=== PATIENT | female | born 1945 | race Caucasian/White ===

== ENCOUNTER 2019-06-10 00:37 | Outpatient (CLI) | payer SELFPAY ==
[~2019-06-10 00:37] MED LIST: PENI500T2 PO
[2019-06-10 09:07] LABS: CHOL/HDL RATIO 3.47 (0.00-4.99)
[2019-06-10 09:22] LABS: HEMOGLOBIN A1C 5.7 % (4.5-6.2)
== END 2019-06-10 23:59 | disposition home or self-care (01) ==
LOC: HW HEART 00:37
DX: Z13.6 Encounter for screening for cardiovascular disorders (principal)
CPT/HCPCS: 36415

== ENCOUNTER 2019-10-08 09:15 | Outpatient (CLI) | payer MEDICARE ==
[2019-10-08 10:39] LABS: BASOPHILS # (AUTO) 0.1 X10'3 (0-0.2); BASOPHILS % (AUTO) 1.3 % (0-1); EOSINOPHILS # (AUTO) 0.1 X10'3 (0-0.9); EOSINOPHILS % (AUTO) 1.8 % (0-6); HEMOGLOBIN 13.8 g/dl (12.0-16.0); LYMPHOCYTES # (AUTO) 1.7 X10'3 (1.1-4.8); LYMPHOCYTES % (AUTO) 31.7 % (21-51); MEAN CORPUSCULAR HEMOGLOBIN 31.9 PG (27.0-31.0); MEAN CORPUSCULAR HGB CONC 33.6 g/dL (33.0-36.5); MEAN CORPUSCULAR VOLUME 95.2 FL (78-98); MEAN PLATELET VOLUME 9.8 FL (7.4-10.4); MONOCYTES # (AUTO) 0.7 X10'3 (0-0.9); MONOCYTES % (AUTO) 12.8 % (2-12); NEUTROPHILS # (AUTO) 2.8 X10'3 (1.8-7.7); NEUTROPHILS % (AUTO) 52.4 % (42-75); PLATELET COUNT 201 X10'3 (140-440); RED BLOOD COUNT 4.31 X10'6 (4.20-5.60); RED CELL DISTRIBUTION WIDTH 13.4 % (11.5-14.5); WHITE BLOOD COUNT 5.3 X10'3 (4.5-11.0)
[2019-10-08 11:01] LABS: ALANINE AMINOTRANSFERASE 37 U/L (12-78); ALBUMIN 3.5 G/DL (3.4-5.0); ALKALINE PHOSPHATASE 108 IU/L (46-116); ANION GAP 2 (8-16); ASPARTATE AMINO TRANSFERASE 27 U/L (10-37); BILIRUBIN,TOTAL 0.4 MG/DL (0.1-1.0); BLOOD UREA NITROGEN 17 MG/DL (7-18); CALCIUM 9.2 MG/DL (8.5-10.1); CHLORIDE 108 MMOL/L (99-107); CREATININE 0.68 MG/DL (0.40-0.90); GLUCOSE 72 MG/DL (70-104); POTASSIUM 4.6 MMOL/L (3.5-5.1); SODIUM 143 MMOL/L (135-145); TOTAL CARBON DIOXIDE 33.3 MMOL/L (24-32); TOTAL PROTEIN 6.9 G/DL (6.4-8.2); eGFR 84 ML/MIN
[2019-10-08 11:28] LABS: OCCULT BLOOD STOOL NEGATIVE (Neg)
== END 2019-10-08 23:59 | disposition home or self-care (01) ==
LOC: LAB 09:15
PROVIDERS: ATTEND Nurse Practitioner Family
DX: J98.01 Acute bronchospasm (principal); R19.5 Other fecal abnormalities; R53.83 Other fatigue
CPT/HCPCS: 36415; 80053; 82272; 84443; 85025

== ENCOUNTER 2021-12-07 19:01 | Emergency (ER) | payer MEDICARE ==
[~2021-12-07] VITALS: Ht 160 cm; Wt 63.6 kg
[2021-12-07 19:46] LABS: BASOPHILS # (AUTO) 0.1 X10'3 (0-0.2); BASOPHILS % (AUTO) 1.2 % (0-1); EOSINOPHILS # (AUTO) 0.1 X10'3 (0-0.9); EOSINOPHILS % (AUTO) 2.1 % (0-6); HEMATOCRIT 38.2 % (35.0-45.0); HEMOGLOBIN 13.3 g/dl (12.0-16.0); LYMPHOCYTES % (AUTO) 46.8 % (21-51); MEAN CORPUSCULAR HEMOGLOBIN 32.4 PG (27.0-31.0); MEAN CORPUSCULAR HGB CONC 34.7 g/dL (33.0-36.5); MEAN CORPUSCULAR VOLUME 93.1 FL (78-98); MEAN PLATELET VOLUME 9.2 FL (7.4-10.4); MONOCYTES # (AUTO) 0.7 X10'3 (0-0.9); MONOCYTES % (AUTO) 10.9 % (2-12); NEUTROPHILS # (AUTO) 2.5 X10'3 (1.8-7.7); PLATELET COUNT 183 X10'3 (140-440); RED CELL DISTRIBUTION WIDTH 13.4 % (11.5-14.5); WHITE BLOOD COUNT 6.5 X10'3 (4.5-11.0)
[2021-12-07 20:02] LABS: ALANINE AMINOTRANSFERASE 28 U/L (12-78); ALBUMIN 3.7 G/DL (3.4-5.0); ALKALINE PHOSPHATASE 121 IU/L (46-116); ANION GAP 4 (8-16); ASPARTATE AMINO TRANSFERASE 21 U/L (10-37); BILIRUBIN,TOTAL 0.4 MG/DL (0.1-1.0); BLOOD UREA NITROGEN 25 MG/DL (7-18); BUN/CREATININE RATIO 30.9 (6.6-38.0); CALCIUM 9.6 MG/DL (8.5-10.1); CHLORIDE 103 MMOL/L (99-107); CREATININE 0.81 MG/DL (0.40-0.90); GLUCOSE 109 MG/DL (70-104); POTASSIUM 3.8 MMOL/L (3.5-5.1); SODIUM 140 MMOL/L (135-145); TOTAL CARBON DIOXIDE 32.6 MMOL/L (24-32); TOTAL PROTEIN 7.4 G/DL (6.4-8.2); eGFR 68 ML/MIN
[2021-12-07] MEDS ORDERED: aspirin 81mg tab.chew PO ONE (21:20)
[2021-12-07 22:50] VITALS: BP 156/75
== END 2021-12-07 22:15 | disposition home or self-care (01) ==
LOC: ER 19:02
DX: R07.9 Chest pain, unspecified (principal); F32.A Depression, unspecified; Z79.899 Other long term (current) drug therapy
CPT/HCPCS: 36415; 71045; 80053; 83880; 84484; 85025; 93005; 99285

== ENCOUNTER 2022-11-28 16:43 | Emergency (ER) | payer MEDICARE ==
[~2022-11-28] VITALS: Ht 160 cm; Wt 65.6 kg
[2022-11-28] MEDS ORDERED: normal saline 1000ML IV soln IVB ONE (21:10)
[2022-11-28 21:33] LABS: BASOPHILS # (AUTO) 0.1 X10'3 (0-0.2); BASOPHILS % (AUTO) 1.1 % (0-1); EOSINOPHILS # (AUTO) 0.2 X10'3 (0-0.9); EOSINOPHILS % (AUTO) 3.1 % (0-6); HEMATOCRIT 39.3 % (35.0-45.0); HEMOGLOBIN 13.1 g/dl (12.0-16.0); LYMPHOCYTES # (AUTO) 2.4 X10'3 (1.1-4.8); LYMPHOCYTES % (AUTO) 40.9 % (21-51); MEAN CORPUSCULAR HEMOGLOBIN 31.9 PG (27.0-31.0); MEAN CORPUSCULAR HGB CONC 33.5 g/dL (33.0-36.5); MEAN CORPUSCULAR VOLUME 95.4 FL (78-98); MEAN PLATELET VOLUME 9.8 FL (7.4-10.4); MONOCYTES # (AUTO) 0.7 X10'3 (0-0.9); MONOCYTES % (AUTO) 12.4 % (2-12); NEUTROPHILS # (AUTO) 2.5 X10'3 (1.8-7.7); NEUTROPHILS % (AUTO) 42.5 % (42-75); PLATELET COUNT 165 X10'3 (140-440); RED BLOOD COUNT 4.12 X10'6 (4.20-5.60); RED CELL DISTRIBUTION WIDTH 13.2 % (11.5-14.5)
[2022-11-28 21:48] LABS: ALANINE AMINOTRANSFERASE 26 U/L (12-78); ALBUMIN 3.6 G/DL (3.4-5.0); ALBUMIN/GLOBULIN RATIO 1.1 (1.1-1.5); ALKALINE PHOSPHATASE 94 IU/L (46-116); ANION GAP 8 (8-16); ASPARTATE AMINO TRANSFERASE 23 U/L (10-37); BILIRUBIN,TOTAL 0.4 MG/DL (0.1-1.0); BLOOD UREA NITROGEN 19 MG/DL (7-18); CALCIUM 9.2 MG/DL (8.5-10.1); CHLORIDE 106 MMOL/L (99-107); CREATININE 0.73 MG/DL (0.40-0.90); GLUCOSE 95 MG/DL (70-104); SODIUM 143 MMOL/L (135-145); TOTAL PROTEIN 6.9 G/DL (6.4-8.2); eGFR 77 ML/MIN
--- NOTE | 2022-11-28 22:15 | NUR ---
pt amb with steady gait to restroom for urine sample
[2022-11-28 22:39] LABS: CLARITY,URINE CLEAR (Clear); COLOR,URINE STRAW (Yellow); GLUCOSE, URINE NEGATIVE (Neg); KETONES,URINE NEGATIVE (Neg); LEUKOCYTE ESTERASE ,URINE TRACE (Neg); NITRITES, URINE NEGATIVE (Neg); OCCULT BLOOD,URINE NEGATIVE (Neg); PH,URINE 6.5 (4.8-8.0); PROTEIN,URINE NEGATIVE (Neg); UROBILINOGEN,URINE 0.2 E.U/dL (0.2-1.0)
[2022-11-28 22:41] LABS: UA COLLECTION TYPE CLN CATCH MIDSTREAM
[2022-11-28 22:45] LABS: BACTERIA,URINE NONE SEEN /HPF (Neg); MUCUS STRANDS FEW /LPF (Neg); RBC,URINE 0-2 /HPF (0-2); SQUAMOUS EPITHELIAL CELL,UR NONE SEEN /LPF (FEW); WBC,URINE 0-4 /HPF (0-4)
[2022-11-28 23:31] VITALS: BP 168/71
== END 2022-11-28 23:32 | disposition home or self-care (01) ==
LOC: ER 16:44
DX: R51.9 Headache, unspecified (principal); F32.A Depression, unspecified; Z79.899 Other long term (current) drug therapy
CPT/HCPCS: 36415; 70450; 80053; 81001; 84484; 85025; 87088; 93005; 99285; J7030; J7040

== ENCOUNTER 2023-08-20 05:48 | Day surgery (SDC) | payer MEDICARE ==
[2023-08-16 15:48] LABS: BASOPHILS # (AUTO) 0.1 X10'3 (0-0.2); BASOPHILS % (AUTO) 1.3 % (0-1); EOSINOPHILS # (AUTO) 0.1 X10'3 (0-0.9); EOSINOPHILS % (AUTO) 2.2 % (0-6); HEMATOCRIT 38.4 % (35.0-45.0); HEMOGLOBIN 13.1 g/dl (12.0-16.0); LYMPHOCYTES # (AUTO) 2.4 X10'3 (1.1-4.8); LYMPHOCYTES % (AUTO) 37.7 % (21-51); MEAN CORPUSCULAR HEMOGLOBIN 32.3 PG (27.0-31.0); MEAN CORPUSCULAR VOLUME 95.1 FL (78-98); MEAN PLATELET VOLUME 9.9 FL (7.4-10.4); MONOCYTES # (AUTO) 0.8 X10'3 (0-0.9); MONOCYTES % (AUTO) 12.2 % (2-12); NEUTROPHILS % (AUTO) 46.6 % (42-75); PLATELET COUNT 159 X10'3 (140-440); RED BLOOD COUNT 4.04 X10'6 (4.20-5.60); RED CELL DISTRIBUTION WIDTH 13.1 % (11.5-14.5); WHITE BLOOD COUNT 6.4 X10'3 (4.5-11.0)
[2023-08-16 16:04] LABS: ALANINE AMINOTRANSFERASE 30 U/L (12-78); ALBUMIN 3.4 G/DL (3.4-5.0); ALKALINE PHOSPHATASE 112 IU/L (46-116); ANION GAP 4 (8-16); ASPARTATE AMINO TRANSFERASE 28 U/L (10-37); BILIRUBIN,TOTAL 0.3 MG/DL (0.1-1.0); BLOOD UREA NITROGEN 18 MG/DL (7-18); BUN/CREATININE RATIO 20.2 (10.0-20.0); CHLORIDE 106 MMOL/L (99-107); CREATININE 0.89 MG/DL (0.40-0.90); GLUCOSE 91 MG/DL (70-104); POTASSIUM 3.9 MMOL/L (3.5-5.1); SODIUM 143 MMOL/L (135-145); TOTAL CARBON DIOXIDE 33.4 MMOL/L (24-32); TOTAL PROTEIN 6.8 G/DL (6.4-8.2); eGFR 61 ML/MIN
[2023-08-20] VITALS (10 sets, daily range): BP systolic 131–158; BP diastolic 53–83; PULSE 50–100; RESP 14–17; TEMP 97.8; O2SAT 94–96
[~2023-08-20] VITALS: Ht 160 cm; Wt 60.6 kg
[~2023-08-20 05:48] MED LIST changes: +ATOR20TA66 PO; +AZEL137S4 BOTHNARES; +CITA20TA28 PO; +MELATONIN; +NEURIVA; +OMEP40CA21 PO; +OXYB-58 PO; -PENI500T2 PO; +VITAMIN D 3; +cefazolin 2gm/D5W 100mL 100 ML IV ONE; +famotidine 20mg tablet PO ONE; +ringers solution, lacted 1,000 ML IV SCH
[2023-08-20] MEDS ORDERED: BUPIVAcaine/PF 2.5mg/ml (0.25%) 10ml vial ONE (06:29)
[2023-08-20] MEDS: albuterol 2.5 MG/3 ML nebule NEB PRN (06:46)
[2023-08-20] MEDS ORDERED: LIDOcaine 1% 30ml preserv. free vial ONE (07:45)
[2023-08-20] MEDS ORDERED: fentaNYL/PF 50MCG/1 ML 2ML syringe ONE (08:34)
[2023-08-20] MEDS ORDERED: midazolam 1 mg/ML 2ml injection ONE (08:34)
[2023-08-20] MEDS ORDERED: ketorolac trometh. 30mg/ml inj. ONE (08:34)
[2023-08-20] MEDS: LIDOcaine 2% (20mg/ml) 5ml vial ONE (09:15)
== END 2023-08-20 10:20 | disposition home or self-care (01) ==
LOC: PAS 05:48
PROVIDERS: ATTEND Orthopaedic Surgery Hand Surgery
DX: R22.32 Localized swelling, mass and lump, left upper limb (principal); D21.12 Benign neoplasm of connective and other soft tissue of left upper limb, including shoulder; E78.5 Hyperlipidemia, unspecified; G43.909 Migraine, unspecified, not intractable, without status migrainosus; J45.909 Unspecified asthma, uncomplicated; K21.9 Gastro-esophageal reflux disease without esophagitis; G47.33 Obstructive sleep apnea (adult) (pediatric); Z79.899 Other long term (current) drug therapy; Z90.710 Acquired absence of both cervix and uterus; Z96.652 Presence of left artificial knee joint; Z98.890 Other specified postprocedural states
CPT/HCPCS: 26113; 36415; 80053; 82948; 85025; 94640; 94760; J0690; J1885; J2250; J3010; J3490; J7030; J7120; Z7506; Z7512; 88304; A4215; A4618; A6449; A7000

== ENCOUNTER 2023-08-24 11:45 | Emergency (ER) | payer MEDICARE ==
[~2023-08-24] VITALS: Ht 157.5 cm; Wt 59.7 kg
[~2023-08-24 11:45] MED LIST changes: -cefazolin 2gm/D5W 100mL 100 ML IV ONE; -famotidine 20mg tablet PO ONE; -ringers solution, lacted 1,000 ML IV SCH
[2023-08-24 11:46] VITALS: BP 132/39; PULSE 51; TEMP 98; O2SAT 99
[2023-08-24 12:00] VITALS: RESP 16
== END 2023-08-24 13:08 | disposition home or self-care (01) ==
LOC: ER 11:46
DX: S00.33XA Contusion of nose, initial encounter (principal); S80.01XA Contusion of right knee, initial encounter; W19.XXXA Unspecified fall, initial encounter; Y93.89 Activity, other specified; Y92.89 Other specified places as the place of occurrence of the external cause; Y99.8 Other external cause status
CPT/HCPCS: 99284

== ENCOUNTER 2023-10-27 09:27 | Emergency (ER) | payer MEDICARE ==
[~2023-10-27] VITALS: Ht 157.5 cm; Wt 60.8 kg
[2023-10-27 09:35] VITALS: BP 123/75; PULSE 86; RESP 16; TEMP 98.9; O2SAT 96
[2023-10-27 11:08] LABS: STREP A SCREEN NEGATIVE (Neg)
== END 2023-10-27 14:16 | disposition home or self-care (01) ==
LOC: ER 14:15
DX: B34.9 Viral infection, unspecified (principal); F32.A Depression, unspecified; Z60.2 Problems related to living alone
CPT/HCPCS: 87081; 87880; 99283

== ENCOUNTER 2024-06-18 16:26 | Emergency (ER) | payer MEDICARE ==
[~2024-06-18] VITALS: Ht 157.5 cm; Wt 63.6 kg
[2024-06-18 16:43] VITALS: BP 126/50; PULSE 61; RESP 18; O2SAT 98
[2024-06-18] MEDS ORDERED: [UNRECOGNIZED DRUG - CODE] TP (19:28)
[2024-06-18 19:39] VITALS: TEMP 97.8
[2024-06-18] MEDS: LIDOcaine 5% patch TP ONE (19:39)
== END 2024-06-18 19:42 | disposition home or self-care (01) ==
LOC: ER 16:26
DX: M54.6 Pain in thoracic spine (principal); F32.A Depression, unspecified; Z60.2 Problems related to living alone; Z79.899 Other long term (current) drug therapy
CPT/HCPCS: 99282

== ENCOUNTER 2024-10-02 06:41 | Emergency (ER) | payer MEDICARE ==
[~2024-10-02] VITALS: Ht 157.5 cm; Wt 60.4 kg
[~2024-10-02 06:41] MED LIST changes: +CITA-178 PO; -CITA20TA28 PO; +[UNRECOGNIZED DRUG - CODE] TP
[2024-10-02 06:48] VITALS: TEMP 98.1
--- NOTE | 2024-10-02 08:26 | Physician Documentation ---
History of Present Illness ~ General Chief Complaint: Multiple Medical Complaints Stated Complaint: LEG PAIN,HEADACHE Time Seen by MD: 08:26 Primary Medical Doctor: CELSO FITZGERALD History of Present Illness Initial Comments This is a 78-year-old female who presents to the emergency department today due to concerns for 10 days of cramps in her calves along with two days of headaches. She describes the headache as occipital and wrapping around to the front of the head. She currently rates it a 5/10. He has not tried any medication for her headache. She reports that she has no medical history other than depression, for which she takes low-dose Celexa. She has had no nausea, vomiting, diarrhea, dizziness, chest pain, shortness of breath. 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 She does not report undertaking any recent unusually aggressive physical activity beyond this usual amount. She denies dark urine. Medication Reconciliation Allergies: Coded Allergies: No Known Allergies (Unverified , 06/18/24) Scheduled Atorvastatin Calcium (Atorvastatin Calcium), 1 TAB PO DAILY, (Reported) Azelastine HCl (Azelastine HCl), 2 SPRAYS BOTHNARES BID, (Reported) Citalopram Hydrobromide* (Celexa*), 1 TAB PO DAILY, (Reported) Omeprazole (Prilosec), 1 CAP PO DAILY, (Reported) Oxybutynin Chloride (Ditropan Xl), 1 TAB PO DAILY, (Reported) Scheduled PRN Lidocaine (Tridacaine III), 1 PATCH TP DAILY PRN for pain Miscellaneous Medications [Melatonin], Unknown Dose, (Reported) [Neuriva], Unknown Dose, (Reported) [Vitamin D 3], Unknown Dose, (Reported) Past Medical History Past Medical History: Depression Past Surgical History: no surgical history Alcohol Use: None Drug Use: none Lives with: Alone Lives In: Home Occupation: employed Review of Systems ROS As stated above in the HPI, otherwise all systems are reviewed and negative. Physical Exam Physical Exam Vital Signs: Temperature: 98.1, Source: Oral, Heart Rate: 56, Respiratory Rate: 10, BP: 122/64, Pulse Oximetry: 97, Weight: 60.400 Oxygen Flow Rate: 0 Physical Exam General: Alert, no apparent distress. Neck: Full range of motion. Respiratory: Lungs clear, no respiratory distress. Chest: No accessory muscle use. Cardiovascular: Regular rate and rhythm, no murmurs. Gastrointestinal: Soft, nontender, nondistended. Bowels sounds present. Extremities: Normal range of motion, no deformity. No tenderness to palpation of calves. No erythema/edema noted. Neurologic: Oriented x4. Psychiatric: Normal mood and affect. Skin: Normal color, warm and dry. No edema, no ecchymosis. Progress Results/Orders Results/Orders Medications Received in ER Medications (Trade) Dose Ordered Sig/Winifred Route PRN Reason Start Time Stop Time Status Last Admin Dose Admin Sodium Chloride 1,000 ml @ 1,000 mls/hr ONCE ONCE IV 10/02/24 08:50 10/02/24 09:49 DC 10/02/24 10:58 1,000 MLS/HR (Tylenol tablet) 650 mg ONCE ONCE PO 10/02/24 09:45 10/02/24 09:46 DC 10/02/24 10:57 650 MG Vital Signs 10/02/24 10/02/24 10/02/24 10/02/24 06:48 08:15 10:53 10:58 Temp 98.1 Pulse 59 56 73 Resp 16 10 15 15 B/P (MAP) 133/60 122/64 (83) 163/81 Pulse Ox 99 97 96 O2 Flow Rate 0 Laboratory Tests Test 10/02/24 09:03 White Blood Count 9.6 Red Blood Count 4.15 L Hemoglobin 13.6 Hematocrit 39.6 Mean Corpuscular Volume 95.2 Mean Corpuscular Hemoglobin 32.7 H Mean Corpuscular Hemoglobin Concent 34.3 Red Cell Distribution Width 13.8 Platelet Count 105 L Mean Platelet Volume 8.7 Neutrophils (%) (Auto) 68.3 Lymphocytes (%) (Auto) 18.1 L Monocytes (%) (Auto) 12.1 H Eosinophils (%) (Auto) 0.9 Basophils (%) (Auto) 0.6 Neutrophils # (Auto) 6.5 Lymphocytes # (Auto) 1.7 Monocytes # (Auto) 1.2 H Eosinophils # (Auto) 0.1 Basophils # (Auto) 0.1 CBC Comment Sodium Level 144 Potassium Level 4.2 Chloride Level 108 H Carbon Dioxide Level 31.1 Anion Gap 5 L Blood Urea Nitrogen 18 Creatinine 0.67 Estimated GFR/1.73 m2 85 BUN/Creatinine Ratio 26.9 H Glucose Level 96 Calcium Level 9.2 Magnesium Level 2.4 Total Bilirubin 0.6 Aspartate Amino Transf (AST/SGOT) 25 Alanine Aminotransferase (ALT/SGPT) 21 Alkaline Phosphatase 88 Total Protein 6.4 Albumin 3.2 L Globulin 3.2 Albumin/Globulin Ratio 1.0 L Chemistry Comments Medical Decision Making Differential Diagnosis This is a well-appearing 78-year-old female with no primary health conditions other than depression who came in today with concerns for calf pain and headaches. She was concerned about dehydration. However, she was denying danger signs to include discolored urine, signs of DVT, fevers, chills, chest pain, shortness of breath. She was overall well-appearing with no other complaints besides the headache and the calf pain. Labs were undertaken and showed normal electrolytes and a normal CBC. After discussion of the labs, patient was agreeable to getting a L of normal saline intravenously and then discharging home to follow up with her primary care provider within the week. Departure Time of Disposition: 09:41 Disposition: 01 HOME / SELF CARE / HOMELESS Impression: Primary Impression: Bilateral calf pain Additional Impression: Headache Condition: Stable Discharge Instructions: General Headache Without Cause, Musculoskeletal Pain Additional Instructions: Your lab work was good today. No concerns. You were given a liter of normal saline IV and some tylenol for headache. At home, make sure you're drinking pl enty of fluids. If the headache persists, you may use tylenol per the label instructions. See your primary care for recheck within a week. Return if worse. Referrals: NO PRIMARY CARE PROVIDER (PCP) Education Educated: Patient Educated regarding: diagnosis, treatment, prognosis, need for follow up Signature Scribe Signature: no scribe Attestation: The note accurately reflects work and decisions made by me.Kat Dumont NP 10/02/24 08:54 MONTEZ SHANNON MD October 02, 2024 08:26 KAT ORTEZ NP October 02, 2024 08:54
[2024-10-02 09:17] LABS: BASOPHILS # (AUTO) 0.1 X10'3 (0-0.2); BASOPHILS % (AUTO) 0.6 % (0-1); EOSINOPHILS # (AUTO) 0.1 X10'3 (0-0.9); EOSINOPHILS % (AUTO) 0.9 % (0-6); HEMATOCRIT 39.6 % (35.0-45.0); HEMOGLOBIN 13.6 g/dl (12.0-16.0); LYMPHOCYTES # (AUTO) 1.7 X10'3 (1.1-4.8); LYMPHOCYTES % (AUTO) 18.1 % (21-51); MEAN CORPUSCULAR HEMOGLOBIN 32.7 PG (27.0-31.0); MEAN CORPUSCULAR HGB CONC 34.3 g/dL (33.0-36.5); MEAN CORPUSCULAR VOLUME 95.2 FL (78-98); MEAN PLATELET VOLUME 8.7 FL (7.4-10.4); MONOCYTES # (AUTO) 1.2 X10'3 (0-0.9); MONOCYTES % (AUTO) 12.1 % (2-12); NEUTROPHILS # (AUTO) 6.5 X10'3 (1.8-7.7); NEUTROPHILS % (AUTO) 68.3 % (42-75); PLATELET COUNT 105 X10'3 (140-440); RED BLOOD COUNT 4.15 X10'6 (4.20-5.60); RED CELL DISTRIBUTION WIDTH 13.8 % (11.5-14.5); WHITE BLOOD COUNT 9.6 X10'3 (4.5-11.0)
[2024-10-02 09:35] LABS: ALANINE AMINOTRANSFERASE 21 U/L (12-78); ALBUMIN 3.2 G/DL (3.4-5.0); ALKALINE PHOSPHATASE 88 IU/L (46-116); ANION GAP 5 (8-16); ASPARTATE AMINO TRANSFERASE 25 U/L (10-37); BILIRUBIN,TOTAL 0.6 MG/DL (0.1-1.0); BLOOD UREA NITROGEN 18 MG/DL (7-18); BUN/CREATININE RATIO 26.9 (10.0-20.0); CALCIUM 9.2 MG/DL (8.5-10.1); CHLORIDE 108 MMOL/L (99-107); CREATININE 0.67 MG/DL (0.40-0.90); GLUCOSE 96 MG/DL (70-104); MAGNESIUM 2.4 MG/DL (1.5-2.4); POTASSIUM 4.2 MMOL/L (3.5-5.1); SODIUM 144 MMOL/L (135-145); TOTAL CARBON DIOXIDE 31.1 MMOL/L (24-32); TOTAL PROTEIN 6.4 G/DL (6.4-8.2); eCRCL 53 ML/MIN; eGFR 85 ML/MIN
[2024-10-02 10:53] VITALS: BP 163/81; PULSE 73; O2SAT 96
[2024-10-02] MEDS: acetaminophen 325mg tablet PO ONE (10:57)
[2024-10-02 10:58] VITALS: RESP 15
[2024-10-02] MEDS: normal saline 1000ml 1,000 ML IV ONE (10:58)
== END 2024-10-02 11:10 | disposition home or self-care (01) ==
LOC: ER 06:41
DX: M79.661 Pain in right lower leg (principal); M79.662 Pain in left lower leg; R51.9 Headache, unspecified; F32.A Depression, unspecified
CPT/HCPCS: 36415; 80053; 83735; 85025; 99284; J7030; 96372

== ENCOUNTER 2025-04-30 20:07 | Emergency (ER) | payer MEDICARE ==
[~2025-04-30] VITALS: Ht 157.5 cm; Wt 59.1 kg
[2025-04-30 20:30] VITALS: BP 170/68; PULSE 64; RESP 16; TEMP 97.6; O2SAT 98
--- NOTE | 2025-04-30 22:17 | Physician Documentation ---
History of Present Illness ~ Chief Complaint: Rash Stated Complaint: RASH Time Seen by MD: 21:26 Primary Medical Doctor: CELSO FITZGERALD [facility] This is an 79-year-old female who presents with a rash to her left shoulder for the past three weeks, patient was seen by her primary care provider sold this was an allergic reaction and told to use an [id number] cream on the area. Patient reports no fever chills, other systemic symptoms and reports the rash is limited to her shoulder and described as itchy and not painful. Patient reports no other acute symptoms or concerns. Medication Reconciliation Allergies: Coded Allergies: No Known Allergies (Unverified , 06/18/24) Scheduled Atorvastatin Calcium (Atorvastatin Calcium), 1 TAB PO DAILY, (Reported) Azelastine HCl (Azelastine HCl), 2 SPRAYS BOTHNARES BID, (Reported) Citalopram Hydrobromide* (Celexa*), 1 TAB PO DAILY, (Reported) Omeprazole (Prilosec), 1 CAP PO DAILY, (Reported) Oxybutynin Chloride (Ditropan Xl), 1 TAB PO DAILY, (Reported) Triamcinolone Acetonide 0.1% Crm* (Kenalog 0.1% Crm*), 1 APPLIC TOP Q12H Scheduled PRN Lidocaine (Tridacaine III), 1 PATCH TP DAILY PRN for pain Miscellaneous Medications [Melatonin], Unknown Dose, (Reported) [Neuriva], Unknown Dose, (Reported) [Vitamin D 3], Unknown Dose, (Reported) Past Medical History Past Medical History: Depression Past Surgical History: no surgical history Alcohol Use: None Drug Use: none Lives with: Alone Lives In: Home Occupation: employed Review of Systems ROS As stated above in the HPI, otherwise all systems are reviewed and negative. Physical Exam Vital Signs: Temperature: 97.6, Source: Temporal, Heart Rate: 64, Respiratory Rate: 16, BP: 170/68, Pulse Oximetry: 98, Weight: 59.100 Physical Exam VITALS: Reviewed and as above. GENERAL: Alert, nontoxic appearing, no apparent distress. RESPIRATORY: No increased work of breathing, no respiratory distress, speaking in full clear sentences SKIN: Round Flat erythematous rash to left shoulder, nontender to palpation Progress Results/Orders Results/Orders Vital Signs 04/30/25 20:30 Temp 97.6 Pulse 64 Resp 16 B/P (MAP) 170/68 Pulse Ox 98 Medical Decision Making Additional information obtaine: N/A Findings This 79-year-old female presented with a rash to her left shoulder, this appears to be allergic dermatitis which is consistent with previous evaluation by her primary care provider, it is reassuring patient reported no fever, chills, other systemic symptoms or other recent illness and reports rash is itchy and not painful. This is a well-appearing appropriate for outpatient follow up, patient is to follow up with the primary care provider in wheel aligner for further evaluation. Patient provided careful return to care precautions and follow up instructions which she verbalized understanding of. Differential Dx:Considerations: Include: Abscess, Anthrax (cutaneous), Atopic dermatitis, Candidiasis, Contact dermatitis, Drug reaction, Erythema multiforme, Erysipelas, Gangrene, Herpes zoster, Herpes simplex, Lymes disease, Pediculosis, Pityriasis rosea, Psoriaisis, RMSF, Rosacea, Scabies, Tinea, Urticaria, Varicella, Viral exanthema Departure Time of Disposition: 22:18 Disposition: HOME / SELF CARE / HOMELESS Impression: Primary Impression: Allergic urticaria Condition: Improved Additional Instructions: Please use the prescribed cream. Follow up with your primary care provider and wheel aligner for further evaluation of this rash. Please follow up with your primary care provider in the next few days. Please return to the emergency department for any new or worsening concerning symptoms. Referrals: NO PRIMARY CARE PROVIDER (PCP) Prescriptions Triamcinolone Acetonide 0.1% Crm* (Kenalog 0.1% Crm*) 1 Applic Tube 1 APPLIC TOP Q12H for 10 Days, #80 GM Prov: CHRYSTAL PENA 04/30/25 Education Educated: Patient Educated regarding: diagnosis, treatment, prognosis, need for follow up Signature Scribe Signature: No scribe Attestation: The note accurately reflects work and decisions made by me.BRANDON Schroeder 04/30/25 22:20 CHRYSTAL PENA Apr 30, 2025 22:17
[2025-04-30] MEDS ORDERED: KEN0.1O TOP (22:19)
== END 2025-04-30 22:56 | disposition home or self-care (01) ==
LOC: ER 20:08
DX: L50.0 Allergic urticaria (principal); F32.A Depression, unspecified; Z79.899 Other long term (current) drug therapy; Z60.2 Problems related to living alone
CPT/HCPCS: 99283